=== PATIENT | female | born 1985 | race African-American/Black ===

== ENCOUNTER 2020-02-13 03:45 | Inpatient (IN) | payer OTHER ==
[2020-02-13] MEDS ORDERED: LACTATED RINGERS SOLUTION 1,000 ML/1,000 ML INFUS.BAG IV STA ×2 (04:50→06:03)
[2020-02-13 06:11] LABS: EPI CELLS >36 /uL (0-25.1); HYALINE CASTS 1 /uL (0-3.1); PH,URINE 6.5 (5.0-8.0); URINE APPEARANCE CLOUDY; URINE BACTERIA 1871 /uL (0-1359); URINE BILIRUBIN NEGATIVE (NEGATIVE); URINE COLOR YELLOW; URINE GLUCOSE (UA) NEGATIVE (NEGATIVE); URINE KETONE NEGATIVE (NEGATIVE); URINE LEUK ESTERASE 1+ (NEGATIVE); URINE NITRITE NEGATIVE (NEGATIVE); URINE PROTEIN NEGATIVE (NEGATIVE); URINE RBC 15 /uL (0-23.9); URINE UROBILINOGEN 0.2 mg/dL (0.2-1.0); URINE WBC 200 /uL (0-25.8)
[2020-02-13] MEDS ORDERED: PROMETHAZINE HCL 25 MG/1 ML VIAL ONE (07:22)
[2020-02-13] MEDS ORDERED: BUTORPHANOL TARTRATE 2 MG/ML VIAL ONE (07:22)
--- NOTE | 2020-02-13 07:35 | HP ---
Past Medical History - Primary Care Physician PCP:: Vishnu Bernal - Admission Chief Complaint: Lower abdominal pain History of Present Illness: 34 yo , RUBENS 03/02/20, ECA 37 week 3 days. presented with the above. No bleeding or leakage of fluid per vagina. History Source: Patient Limitations to Obtaining History: No Limitations - Past Medical History ...: 3 ...Para: 1 ...Term: 1 ...: 0 ...Spon : 1 ...Induced : 0 ...Living Children: 1 ...LMP: 05/27/20 ... Weeks Gestation by Dates: 37.3 ...EDC by Sono: 03/02/20 - Past Surgical History Hx Myomectomy: No Hx Transabdominal Cerclage: No - Smoking History Smoking history: Never smoked Have you smoked in the past 12 months: No - Alcohol/Substance Use Hx Alcohol Use: No History of Substance Use: reports: None - Social History Usual Living Arrangement: Yes: With Significant Other Do you think of yourself as: Straight/Heterosexual History of Recent Travel: No Home Medications - Allergies Allergies/Adverse Reactions: Allergies Allergy/AdvReac Type Severity Reaction Status Date / Time No Known Allergies Allergy Verified 11/17/19 10:51 - Home Medications Home Medications: Ambulatory Orders Prenat 115/Iron Fum/Folic/Dss [ 19 Tablet] 1 tab PO DAILY 11/17/19 Family Medical History Family History: Denies Review of Systems - Review of Systems Constitutional: reports: No Symptoms Eyes: reports: No Symptoms HENT: reports: No Symptoms Neck: reports: No Symptoms Cardiovascular: reports: No Symptoms Respiratory: reports: No Symptoms Gastrointestinal: reports: No Symptoms Genitourinary: reports: No Symptoms Breasts: reports: No Symptoms Reported Musculoskeletal: reports: No Symptoms Integumentary: reports: No Symptoms Neurological: reports: No Symptoms Endocrine: reports: No Symptoms Hematology/Lymphatic: reports: No Symptoms Psychiatric: reports: No Symptoms Physical Exam - Maternity Vital Signs: Vital Signs Temperature 98.2 F 02/13/20 04:41 Pulse Rate 92 H 02/13/20 04:41 Respiratory Rate 18 02/13/20 04:41 Blood Pressure 104/69 02/13/20 04:41 O2 Sat by Pulse Oximetry (%) Constitutional: Yes: Well Nourished Eyes: Yes: WNL HENT: Yes: WNL Neck: Yes: WNL Cardiovascular: Yes: WNL - Abdominal Exam/OB Fundal Height: 37 Number of Fetuses: Single Presentation: Vertex Contractions: Yes Regularity: Regular Intensity: Mild/Mod Monitor Mode: External Heart Rate (range): 135 Heart Rate Location: [facility] Category: I Accelerations: Uniform - Physical Exam Musculoskeletal: Yes: WNL Extremities: Yes: WNL Edema: No Integumentary: Yes: WNL ...Motor Strength: WNL Psychiatric: Yes: WNL Hemorrhage Risk Assessment - Risk Factors Medium Risk Factors: Yes: None High Risk Factors: Yes: None Risk Score: 1 Risk Level: Medium Risk Problem List - Problems (1) 37 weeks gestation of Code(s): Z3A.37 - 37 WEEKS GESTATION OF Assessment/Plan Early term gestation in labor Admit L and D for management
[2020-02-13] MEDS ORDERED: PROMETHAZINE HCL 25 MG/1 ML VIAL IVPB ONE (07:41)
[2020-02-13] MEDS ORDERED: BUTORPHANOL TARTRATE 1 MG/ML VIAL IVPB ONE (07:41)
[2020-02-13 08:34] VITALS: BMI 32.3
[2020-02-13 08:44] LABS: BASO % 0.3 % (0-2.0); EOS % 0.2 % (0-4.5); HEMATOCRIT 28.5 % (32.4-45.2); HEMOGLOBIN 9.3 GM/dL (10.7-15.3); LYMPH % 15.6 % (8-40); MCH 28.4 pg (25.7-33.7); MCHC 32.6 g/dl (32.0-36.0); MEAN CELL VOLUME 87.4 fl (80-96); MEAN PLT VOLUME 10.5 fl (7.5-11.1); MONO % 5.3 % (3.8-10.2); NEUT % 78.6 % (42.8-82.8); PLATELET COUNT 223 K/MM3 (134-434); RBC 3.26 M/mm3 (3.60-5.2); RDW 15.8 % (11.6-15.6); WHITE BLOOD COUNT 10.3 K/mm3 (4.0-10.0)
[2020-02-13 08:45] LABS: INR 0.98 (0.83-1.09); PROTHROMBIN TIME (PATIENT) 11.6 SEC (9.7-13.0)
--- NOTE | 2020-02-13 08:46 | PN ---
Progress Note (short form) - Note Progress Note: Pt c/o painful UC and urge to push VSS, afebrile VE - 7-8 cm, -1 vtx, AROM - clear fluid EFM baseline 140 bpm, reactive, cat 1 TOCO UC q 2 min A/P close observation
[2020-02-13 08:47] LABS: ACTIVATED PTT 26.5 SECONDS (25.2-36.5)
[2020-02-13 09:02] LABS: BLOOD UREA NITROGEN 7.2 mg/dL (7-18); CALCIUM 8.3 mg/dL (8.5-10.1); CREATININE 0.7 mg/dL (0.55-1.3); POTASSIUM 3.6 mmol/L (3.5-5.1)
[2020-02-13] MEDS ORDERED: OXYTOCIN 20 UNITS in 0.9% NS 20 UNIT/1,000 ML INFUS.BAG IV ONE (09:13)
[2020-02-13] MEDS ORDERED: LIDOCAINE HCL 1% PRESERVATIVE FREE - 30ML VIAL ONE (09:14)
[2020-02-13] MEDS: OXYTOCIN 20 UNITS in 0.9% NS 20 UNIT/1,000 ML INFUS.BAG IV SCH (09:15)
[2020-02-13] MEDS ORDERED: METHYLERGONOVINE MALEATE 0.2 MG/1 ML AMP IM PRN (09:23)
[2020-02-13] MEDS ORDERED: BISACODYL 10 MG SUPP.RECT RC PRN (09:23)
[2020-02-13] MEDS ORDERED: WITCH HAZEL 50% (TUCKS) 40 PAD/JAR PAD TP PRN (09:23)
[2020-02-13] MEDS ORDERED: BENZOCAINE 20% 57 GM BOTTLE TP PRN (09:23)
[2020-02-13] MEDS ORDERED: BENZOCAINE 28 GM HEMORRHOIDAL OINTMENT TP PRN (09:23)
--- NOTE | 2020-02-13 09:27 | PN ---
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
[2020-02-13 10:09] LABS: CORD BASE EXCESS -6.1 mmol/L (0-2); CORD HCO3 19.7 mmHg (20-29); CORD pH 7.31 (7.14-7.44)
[2020-02-13 10:12] LABS: CORD BASE EXCESS -4.8 mmol/L (0-2); CORD HCO3 20.6 mmHg (20-29); CORD PCO2 39.5 mmHg (30-78); CORD pH 7.336 (7.14-7.44)
[2020-02-13] MEDS: ACETAMINOPHEN 325 MG TABLET (FP) PO PRN ×2 (17:46→22:15)
[2020-02-13] MEDS: IBUPROFEN 600 MG TABLET (FP) PO PRN ×2 (17:47→22:16)
[2020-02-14 09:23] LABS: BASO % 0.2 % (0-2.0); EOS % 0.8 % (0-4.5); HEMATOCRIT 26.6 % (32.4-45.2); HEMOGLOBIN 8.6 GM/dL (10.7-15.3); LYMPH % 14.8 % (8-40); MCH 27.8 pg (25.7-33.7); MCHC 32.3 g/dl (32.0-36.0); MEAN CELL VOLUME 86.1 fl (80-96); MEAN PLT VOLUME 10.1 fl (7.5-11.1); MONO % 4.7 % (3.8-10.2); NEUT % 79.5 % (42.8-82.8); PLATELET COUNT 234 K/MM3 (134-434); RBC 3.08 M/mm3 (3.60-5.2); WHITE BLOOD COUNT 12.4 K/mm3 (4.0-10.0)
[2020-02-14] MEDS ORDERED: DIPHTH,PERTUSS(ACELL),TET 0.5 ML DISP.SYRIN IM ONE (10:00)
--- NOTE | 2020-02-14 12:15 | PN ---
Post Progress Note Post Day: 1 Type of Delivery: Vital Signs: Vital Signs Temperature 98.5 F 02/14/20 10:00 Pulse Rate 77 02/14/20 10:00 Respiratory Rate 18 02/14/20 10:00 Blood Pressure 117/72 02/14/20 10:00 O2 Sat by Pulse Oximetry (%) 100 02/13/20 14:00 Breast Exam: Yes: Soft Uterus: Yes: Fundus Firm, Fundus below umbilicus, Non-tender Abdomen/GI: Yes: Abdomen soft, Tolerating PO Lochia: Yes: Rubra Lochia, amount: Small Extremities: Yes: Calves non-tender Activity: Ambulating - Labs Labs: CBC WBC 12.4 K/mm3 (4.0-10.0) H 02/14/20 08:51 RBC 3.08 M/mm3 (3.60-5.2) L 02/14/20 08:51 Hgb 8.6 GM/dL (10.7-15.3) L 02/14/20 08:51 Hct 26.6 % (32.4-45.2) L 02/14/20 08:51 MCV 86.1 fl (80-96) 02/14/20 08:51 MCH 27.8 pg (25.7-33.7) 02/14/20 08:51 MCHC 32.3 g/dl (32.0-36.0) 02/14/20 08:51 RDW 16.0 % (11.6-15.6) H 02/14/20 08:51 Plt Count 234 K/MM3 (134-434) 02/14/20 08:51 MPV 10.1 fl (7.5-11.1) 02/14/20 08:51 Absolute Neuts (auto) 9.8 K/mm3 (1.5-8.0) H 02/14/20 08:51 Neutrophils % 79.5 % (42.8-82.8) 02/14/20 08:51 Lymphocytes % 14.8 % (8-40) 02/14/20 08:51 Monocytes % 4.7 % (3.8-10.2) 02/14/20 08:51 Eosinophils % 0.8 % (0-4.5) D 02/14/20 08:51 Basophils % 0.2 % (0-2.0) 02/14/20 08:51 Nucleated RBC % 0 % (0-0) 02/14/20 08:51 Problem List - Problems (1) 37 weeks gestation of Code(s): Z3A.37 - 37 WEEKS GESTATION OF Assessment/Plan S/P , ppd # 1, with no complaints Continue management
[2020-02-14] MEDS: DOCUSATE SODIUM 100 MG CAPSULE (FP) PO SCH (12:42)
[2020-02-14] MEDS: FERROUS SO4 325 MG TABLET (FP) PO SCH ×2 (12:42→22:00)
[2020-02-14] MEDS: OXYTOCIN 20 UNITS in 0.9% NS 20 UNIT/1,000 ML INFUS.BAG IV SCH (14:46)
[2020-02-14] MEDS: IBUPROFEN 600 MG TABLET (FP) PO PRN (19:54)
[2020-02-14] MEDS: ACETAMINOPHEN 325 MG TABLET (FP) PO PRN (22:00)
[2020-02-15] MEDS: FERROUS SO4 325 MG TABLET (FP) PO SCH (10:14)
[2020-02-15] MEDS: DOCUSATE SODIUM 100 MG CAPSULE (FP) PO SCH (10:14)
[2020-02-15] MEDS: IBUPROFEN 600 MG TABLET (FP) PO PRN (12:08)
[2020-02-15] MEDS: ACETAMINOPHEN 325 MG TABLET (FP) PO PRN (12:09)
[2020-02-15 13:24] VITALS: BP 121/76; PULSE 78; TEMP 98.2
--- NOTE | 2020-02-15 13:44 | DS ---
Physical Exam-LACEMAKER Vital Signs: Vital Signs Temperature 98.2 F 02/15/20 09:00 Pulse Rate 78 02/15/20 09:00 Respiratory Rate 18 02/15/20 09:00 Blood Pressure 121/76 02/15/20 09:00 O2 Sat by Pulse Oximetry (%) 100 02/15/20 09:00 Constitutional: Yes: Well Nourished, No Distress Eyes: Yes: WNL HENT: Yes: WNL Neck: Yes: WNL Cardiovascular: Yes: WNL Respiratory: Yes: WNL Gastrointestinal: Yes: WNL ...Rectal Exam: Yes: WNL Renal/: Yes: WNL Internal Exam Deferred: No ....Post : Yes: Uterus firm, Uterus non-tender Breast(s): Yes: WNL Musculoskeletal: Yes: WNL Extremities: Yes: WNL Edema: No Labs: CBC, BMP 02/14/20 08:51 02/13/20 08:05 Delivery - Delivery Vaginal Delivery: No Problems, Spontaneous Type of Anesthesia: Local EBL (cc): 400 Delivery, Single - Stages of Labor Date 1st Stage Initiatied: 02/13/20 Time 1st Stage Initiated: 03:00 Date 2nd Stage Initiated: 02/13/20 Time 2nd Stage Initiated: 09:00 Date of Delivery: 02/13/20 Time of Delivery: 09:11 Time Placenta Delivered: 09:16 Placenta: Yes: Spontaneous - 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 Infant Gender: Male Weight: 2.807 kg Position: OA Total Hours ROM (Hrs/Mins): 31min - 1 Minute Total Score: 9 5 Minutes Total Score: 9 - Feeding Plan Initial Plan: Elected not to breastfeed exclusively throughout hospitalization Discharge Summary Problems reviewed: Yes Reason For Visit: LABOR ADMIT Current Active Problems 37 weeks gestation of (Acute) Hospital Course: uneventful Plan of Treatment: D/C home Breast feeding ambulating F/U in 4-6 weeks Condition: Good - Instructions - Home Medications Comprehensive Discharge Medication List: Ambulatory Orders Prenat 115/Iron Fum/Folic/Dss [ 19 Tablet] 1 tab PO DAILY 11/17/19 Valacyclovir HCl [Valtrex] 1 mg PO DAILY 02/13/20
== END 2020-02-15 14:27 | disposition home or self-care (01) | DRG 806 ==
LOC: JDEL 03:45 → JLDR 07:20 → J3W 11:15
PROVIDERS: ADMIT Obstetrics & Gynecology; ATTEND Obstetrics & Gynecology
PROC: 10E0XZZ Delivery of Products of Conception, External Approach (ICD-10-PCS; principal; 2020-02-13)
PROC: 0UQGXZZ Repair Vagina, External Approach (ICD-10-PCS; 2020-02-13)
PROC: 10907ZC Drainage of Amniotic Fluid, Therapeutic from Products of Conception, Via Natural or Artificial Opening (ICD-10-PCS; 2020-02-13)
DX: O60.14X0 Preterm labor third trimester with preterm delivery third trimester, not applicable or unspecified (principal); O71.4 Obstetric high vaginal laceration alone; Z37.0 Single live birth; O69.2XX0 Labor and delivery complicated by other cord entanglement, with compression, not applicable or unspecified; Z3A.37 37 weeks gestation of pregnancy
CPT/HCPCS: 36415; 36600; 59025; 59409; 80048; 81003; 82803; 85025; 85610; 85730; 86780; 86850; 86900; 86901; 87389; 90715; U0003